=== PATIENT | male | born 1995 | race Caucasian/White ===

== ENCOUNTER 2024-12-13 09:53 | Emergency (ER) | payer SELFPAY ==
[~2024-12-13] VITALS: Ht 170.2 cm; Wt 81.6 kg
[2024-12-13 10:05] VITALS: PULSE 66; RESP 20; TEMP 98.1; O2SAT 99
[2024-12-13 10:36] LABS: BILIRUBIN,URINE NEGATIVE (NEGATIVE); CLARITY,URINE CLEAR (CLEAR); COLOR,URINE STRAW (YELLOW); GLUCOSE, URINE NEGATIVE (NEGATIVE); KETONES,URINE NEGATIVE (NEGATIVE); LEUKOCYTE ESTERASE ,URINE NEGATIVE (NEGATIVE); NITRITE,URINE NEGATIVE (NEGATIVE); PH,URINE 5.5 (5 - 7); PROTEIN,URINE DIPSTICK NEGATIVE (NEGATIVE); URINE UROBILINOGEN 0.2 mg/dL (0.2 - 1)
[2024-12-13] MEDS ORDERED: VALTREX1000 MG PO (11:08)
== END 2024-12-13 11:13 | disposition home or self-care (01) ==
LOC: ER 10:11
DX: A60.01 Herpesviral infection of penis (principal); R30.0 Dysuria; F17.210 Nicotine dependence, cigarettes, uncomplicated
CPT/HCPCS: 81001; 99283